=== PATIENT | female | born 2005 | race African-American/Black ===

== ENCOUNTER 2025-04-07 09:11 | Emergency (ER) | payer OTHER, SELFPAY ==
[2025-04-07 09:11] VITALS: BP 116/100; PULSE 82; RESP 20; TEMP 36.4; O2SAT 100
[2025-04-07 09:20] LABS: Glucose Point of Care 96 mg/dl (65-105)
[2025-04-07 10:37] LABS: Basophils Absolute Auto 0.1 K/mm3 (0.0-0.1); Eosinophils Absolute Auto 0.2 K/mm3 (0-0.3); Eosinophils Percent Auto 2.5 % (0-4.4); Hematocrit 42.3 % (37.0-47.0); Hemoglobin 12.5 g/dL (12.0-15.0); Immature Granulocyte Absolute 0.04 K/mm3 (0.00-0.031); Immature Granulocyte Percent A 0.5 % (0-0.5); Lymphocytes Absolute Auto 2.59 K/mm3 (0.9-3.2); Lymphocytes Percent Auto 33.4 % (18.3-44.2); Mean Corpuscular HGB Conc 29.6 g/dl (32-36); Mean Corpuscular Hemoglobin 24.1 pg (26-34); Mean Corpuscular Volume 81.5 fl (80-100); Mean Platelet Volume 11.2 fl (7.4-10.4); Monocytes Absolute Auto 0.4 K/mm3 (0.1-0.6); Monocytes Percent Auto 5.3 % (2.6-8.5); Neutrophils Absolute Auto 4.4 K/mm3 (1.3-6.7); Neutrophils Percent Auto 57.3 % (45.5-73.1); Platelet Count Result 328 k/mm3 (150-375); Red Blood Count 5.19 M/mm3 (4.2-5.4); Red Cell Distribution Width 15.6 % (11.5-14.5); White Blood Count 7.8 K/mm3 (4.5-10.0)
[2025-04-07] MEDS: SODIUM CHLORIDE 0.9% IV 1,000 ML 999 ML IV CONT (10:40)
--- NOTE | 2025-04-07 10:41 | ED_ITS ---
HPI - Headache General Chief Complaint: Headache Stated Complaint: headache Time Seen by Provider: 04/07/25 10:00 History of Present Illness HPI Narrative: 20-year-old female with a history of headaches presenting to the emergency department with a headache for last 2 days associated with photophobia. States she has tried ibuprofen at home without any relief. Not the worst headache of her life, gradually in onset over last 2 days. Note exertional component or strenuous activity onset her symptoms. No other associated symptoms such as blurry vision, vision changes, inability to focus, nausea, vomiting, neck pain or neck stiffness. No trauma or injury. Denies chance of . Related Data Allergies Allergy/AdvReac Type Severity Reaction Status Date / Time No Known Allergies Allergy Verified 04/07/25 09:15 Review of Systems 2 Review of Systems: As reviewed above in HPI Exam 2 Narrative: GENERAL: Morbidly obese but overall well-appearing and not in any acute distress HEAD: [Normocephalic, atraumatic.] EYES: [PERRLA and EOMI.] ENT: Nares clear, no rhinorrhea or epistaxis. Mucous membranes moist. NECK: Supple. CHEST: [Clear to auscultation. No respiratory distress.] HEART: [Regular rate and rhythm]. No murmur heard. [Normal peripheral pulses.] ABDOMEN: [Soft, nondistended], [nontender], [No rigidity or guarding] EXTREMITIES: Normal range of motion. [No edema.] SKIN: Warm, dry, no rash. NEURO: [No focal deficits]. Alert and oriented [x3.] PSYCH: [Normal mood and affect.] Course Vital Signs Vital signs: Vital Signs Temperature 36.4 C 04/07/25 09:11 Pulse Rate 82 04/07/25 09:11 Respiratory Rate 20 04/07/25 09:11 Blood Pressure 116/100 H 04/07/25 09:11 Pulse Oximetry 100 04/07/25 09:11 Oxygen Delivery Room Air 04/07/25 09:11 Temperature 36.4 C 04/07/25 09:11 Pulse Rate 75 04/07/25 11:25 Respiratory Rate 16 04/07/25 11:25 Blood Pressure 113/85 04/07/25 11:25 Pulse Oximetry 100 04/07/25 11:25 Oxygen Delivery Room Air 04/07/25 09:11 MDM - Headache MDM Narrative Medical decision making narrative: 20-year-old female with history of headaches presenting with a headache for last 2 days. Took ibuprofen at home without any relief. Endorses photosensitivity but no other symptoms such as nausea, vomiting, neck pain, neck stiffness. Gradual symptom onset over last 2 days, no exertional component strenuous activity onset her symptoms. She has normal vital signs without any hypertension, tachycardia, fever, hypoxia. Unremarkable neurological assessment. Differential includes migraine headache, tension headache, cluster headache, less likely intracranial process given normal neurological assessment and lack of risk factors. IV was established and she was given a combination medications including Compazine, diphenhydramine, Toradol and a fluid bolus. CBC, BMP in a test was ordered. Patient re-evaluated and had significant improvement her headache. She is safe and stable for discharge home at this time. Medical Records Attestation: I reviewed the patient's medical records. Lab Data Attestation: I reviewed the patient's lab results. 04/07/25 09:24 04/07/25 09:24 Labs: Lab Results 04/07/25 04/07/25 Range/Units 09:16 09:24 WBC 7.8 (4.5-10.0) K/mm3 RBC 5.19 (4.2-5.4) M/mm3 Hgb 12.5 (12.0-15.0) g/dL Hct 42.3 (37.0-47.0) % MCV 81.5 (80-100) fl MCH 24.1 L (26-34) pg MCHC 29.6 L (32-36) g/dl RDW 15.6 H (11.5-14.5) % Plt Count 328 (150-375) k/mm3 MPV 11.2 H (7.4-10.4) fl Immature Gran % (Auto) 0.5 (0-0.5) % Neut % (Auto) 57.3 (45.5-73.1) % Lymph % (Auto) 33.4 (18.3-44.2) % O'Brien % (Auto) 5.3 (2.6-8.5) % Eos % (Auto) 2.5 (0-4.4) % Baso % (Auto) 1.0 (0.2-1.2) % Lymph # (Auto) 2.59 (0.9-3.2) K/mm3 O'Brien # (Auto) 0.4 (0.1-0.6) K/mm3 Eos # (Auto) 0.2 (0-0.3) K/mm3 Baso # (Auto) 0.1 (0.0-0.1) K/mm3 Abs Immat Gran (auto) 0.04 H (0.00-0.031) K/mm3 Absolute Neuts (auto) 4.4 (1.3-6.7) K/mm3 Absolute Nucleated RBC 0.000 (0.0-0.012) K/mm3 Nucleated RBC % 0.0 (0.0-0.2) % Sodium 143 (137-145) mmol/L Potassium 4.5 (3.4-5.0) mmol/L Chloride 106 (98-107) mmol/L Carbon Dioxide 26 (22-30) mmol/L Anion Gap 11 (4-12) mmol/L BUN 11 (7-17) mg/dL Creatinine 0.89 (0.7-1.0) mg/dL Estim Creat Clear Calc 156 ml/min Estimated GFR > 60 (59 - ) Glucose 101 (65-110) mg/dL POC Capillary Glucose 96 (65-105) mg/dl Calcium 9.8 (8.4-10.2) mg/dL Serum HCG, Qual Negative Discharge Plan Discharge Clinical Impression: Migraine Patient Disposition: Home Condition: Stable Instructions: Antibiotic Form, Migraine Headache (ED), Acute Headache (ED) Additional Instructions: We have treated you for migraine headache here in the emergency department. Follow-up with regular primary care provider outpatient. Return with any emergent concerns. Patient Language: Kinyarwanda Follow-up/Referrals: PHYSICIAN,BACK PADDER [Primary Care Provider] - Time of Disposition: 12:39
[2025-04-07] MEDS: PROCHLORPERAZINE EDISYLATE 10 MG/2 ML VIAL IV PUSH (10:42)
[2025-04-07] MEDS: KETOROLAC 15 MG/ML VIAL (*BKC) IV PUSH (10:42)
[2025-04-07] MEDS: diphenhydrAMINE HCl INJ 50 MG/ML VIAL 25 MG IV PUSH (10:42)
[2025-04-07 10:43] LABS: SPREG INTERNAL CONTROL Positive; Serum Qual hCG Negative
[2025-04-07 10:44] LABS: Anion Gap 11 mmol/L (4-12); Blood Urea Nitrogen 11 mg/dL (7-17); Calcium 9.8 mg/dL (8.4-10.2); Carbon Dioxide 26 mmol/L (22-30); Chloride 106 mmol/L (98-107); Estimated CRCL calculation 156 ml/min; Estimated Glomerular Filt Rate > 60; Glucose 101 mg/dL (65-110); Potassium 4.5 mmol/L (3.4-5.0); Sodium 143 mmol/L (137-145)
[2025-04-07 11:25] VITALS: BP 113/85; PULSE 75; RESP 16; O2SAT 100
[2025-04-07 12:48] VITALS: BP 153/81; PULSE 82; RESP 16; O2SAT 100
== END 2025-04-07 12:55 | disposition home or self-care (01) ==
PROVIDERS: Emergency Provider Student in an Organized Health Care Education/Training Program
DX: G43.909 Migraine, unspecified, not intractable, without status migrainosus (principal)
CPT/HCPCS: 36415; 80048; 82948; 84703; 85025; 96361; 96374; 96375; 99284; J0780; J1200; J1885; J7030